=== PATIENT | male | born 1985 | race Caucasian/White ===

== ENCOUNTER 2018-01-30 13:47 | Emergency (ER) | payer SELFPAY ==
--- NOTE | 2018-01-30 13:56 | ER Report ---
History and Physical Time Seen By MD: 13:57 Hx. of Stated Complaint: PT REPORTS TWISTING RIGHT KNEE YESTERDAY HPI/ROS CHIEF COMPLAINT: Knee pain HISTORY OF PRESENT ILLNESS: This is a 32-year-old male who presents to the emergency department for right knee pain. Patient states that he was at work yesterday, twisted his right knee, felt a "pop" in the knee and has had increased pain since. Patient also states that he's had some swelling and discoloration to the knee as well. Patient has increased tenderness to the lateral aspect of the knee although he does have some medial tenderness as well. No previous injuries to the knee. Patient states he is otherwise healthy. No recent fevers or chills. No nausea or vomiting. REVIEW OF SYSTEMS: Respiratory: No cough, no dyspnea. Cardiovascular: No chest pain, no palpitations. Gastrointestinal: No vomiting, no abdominal pain. Musculoskeletal: As above. Allergies: Coded Allergies: ketorolac (Verified Allergy, Intermediate, HIVES, 01/30/18) Uncoded Allergies: IV CONTRAST DYE (Allergy, Severe, ANAPHYLAXIS, 01/30/18) Home Meds Active Scripts Ondansetron (ZOFRAN ODT) 4 Mg Tab.rapdis, 4 MG PO Q6H PRN for NAUSEA/VOMITING, #20 TAB.MAT Prov:RIGO MAC [facility]- 01/30/18 Hydrocodone Bit/Acetaminophen (NORCO 5-325 TABLET) 1 Each Tablet, 1 EACH PO Q4- 6H PRN for PAIN, #10 TAB 0 Refills Prov:RIGO MACP- 01/30/18 Past Medical/Surgical History Patient has a past medical and surgical history of left knee injury and left ankle injury. Otherwise unremarkable. Reviewed Nurses Notes: Yes Constitutional Vital Sign - Last 24 Hours 01/30/18 01/30/18 01/30/18 01/30/18 13:52 14:00 14:30 14:45 Temp 98.7 Pulse 96 105 98 95 Resp 16 B/P (MAP) 143/88 144/83 (103) 126/106 (113) Pulse Ox 96 96 91 95 O2 Delivery Room Air 01/30/18 01/30/18 15:00 15:30 Pulse 96 B/P (MAP) 127/75 (92) 130/79 (96) Pulse Ox 93 92 Physical Exam General Appearance: The patient is alert, has no immediate need for airway protection and no current signs of toxicity. Eyes: Pupils equal and round no injection. Respiratory: Chest is non tender, lungs are clear to auscultation. Cardiac: regular rate and rhythm. Gastrointestinal: Abdomen is soft and non tender, no masses, bowel sounds n ormal. Musculoskeletal: Neck: Neck is supple and non tender. Extremities small amount of swelling to the right lateral knee with a small amount of subtle bruising. Pain to the medial and lateral aspect of the right knee with increased tenderness to the lateral side. Has valgus and varus pain. Increased pain with axial loading of the right heel, decreased pain with traction. Skin: No rashes or lesions. DIFFERENTIAL DIAGNOSIS: After history and physical exam differential diagnosis was considered for knee strain, avulsion fracture, anterior cruciate ligament tear, patellar dislocation and meniscus tear. Medical Decision Making EKG/Imaging Imaging KNEE 4 VIEW RIGHT Indication: Right knee pain for one day. Comparison: None available Findings: 4 views of the right knee. No fracture or dislocation. No significant joint effusion. No bony lesions or appreciable degenerative changes. Soft tissues are unremarkable. IMPRESSION: 1.No acute osseous abnormality of the right knee Report Dictated By: Brandon Colvin at 01/30/2018 3:16 PM Report E-Signed By: Brandon Colvin at 01/30/2018 3:18 PM WSN:[id number] ED Course/Re-evaluation ED Course The patient was admitted to room. A history of physical were obtained. Differential diagnoses were considered. An x-ray of the right knee was negative for any acute osseous abnormalities. I did review the results with the patient. I did tell him that's this could be a meniscus injury. The patient's knee was wrapped with an Jack wrap and he was placed in a knee immobilizer, given crutches and instructed to follow-up with an orthopedist when he returns home to [place]. The patient was also instructed to perform calf pumps while in route into [place] as to prevent DVTs. Patient exposed understanding and was discharged home. Patient was given one 4 mg ODT Zofran, 5 mg IM morphine. With relief. Patient was also sent home with a prescription for Zofran and hydrocodone. Patient had no other questions or concerns at this time and discharged home. Decision to Disposition Date: Jan 30, 2018 Decision to Disposition Time: 15:35 Depart Departure Latest Vital Signs Vital Signs Date Time Temp Pulse Resp B/P (MAP) Pulse Ox O2 Delivery O2 Flow Rate FiO2 01/30/18 15:30 96 130/79 (96) 92 01/30/18 13:52 98.7 16 Room Air Impression: Primary Impression: Right knee pain Condition: Improved Disposition: HOME OR SELF-CARE New Scripts Ondansetron (ZOFRAN ODT) 4 Mg Tab.rapdis 4 MG PO Q6H PRN for NAUSEA/VOMITING, #20 TAB.MAT Prov: RIGO MAC [facility] 01/30/18 Hydrocodone Bit/Acetaminophen (NORCO 5-325 TABLET) 1 Each Tablet 1 EACH PO Q4-6H PRN for PAIN, #10 TAB 0 Refills Prov: RIGO MAC [facility] 01/30/18 Patient Instructions: Knee Pain (ED) Additional Instructions: The x-ray of your right knee does not show any acute bony abnormalities. We will place you in an Jack wrap, knee immobilizer and give you crutches today, follow-up with an orthopedist or primary care provider when you return home. Take Ibuprofen or Tylenol as needed for pain. Take the hydrocodone for severe pain. No driving, operating machinery or drinking alcohol while taking hydrocodone. Drink plenty of water. Get plenty of rest. Return to the ED for any other concerns or worsening symptoms. Problem Qualifiers Primary Impression: Right knee pain Chronicity: acute Qualified Codes: M25.561 - Pain in right knee RIGO MAC [facility] Jan 30, 2018 13:56
[2018-01-30] MEDS ORDERED: ONDANSETRON 4 MG ODT TABDP SL ONE (14:10)
[2018-01-30] MEDS ORDERED: MORPHINE 10 MG/ML SYR IM ONE (14:10)
--- NOTE | 2018-01-30 15:23 | RADIOLOGY IMAGING REPORT ---
FACILITY: [facility] PATIENT NAME: Ben Edwards : 1985 MR: [id number] V: [id number] EXAM DATE: ORDERING PHYSICIAN: RIGO MAC TECHNOLOGIST: Location: [facility] [place] Patient: Ben Edwards : 1985 Visit/Account:[id number] Date of Sevice: 01/30/2018 KNEE 4 VIEW RIGHT Indication: Right knee pain for one day. Comparison: None available Findings: 4 views of the right knee. No fracture or dislocation. No significant joint effusion. No bony lesions or appreciable degenerative changes. Soft tissues are unremarkable. IMPRESSION: 1.No acute osseous abnormality of the right knee Report Dictated By: Brandon Colvin at 01/30/2018 3:16 PM Report E-Signed By: Brandon Colvin at 01/30/2018 3:18 PM WSN:[id number]
[2018-01-30 15:30] VITALS: BP 130/79
[2018-01-30] MEDS ORDERED: HYDR-4309 PO (15:34)
[2018-01-30] MEDS ORDERED: ONDA4TAB PO (15:34)
== END 2018-01-30 15:47 | disposition home or self-care (01) ==
LOC: ER 13:55
DX: M25.561 Pain in right knee (principal); X50.1XXA Overexertion from prolonged static or awkward postures, initial encounter
CPT/HCPCS: 73564; 96372; 99283; J2270; L1830; S0119